=== PATIENT | female | born 1925 | race Caucasian/White ===

== ENCOUNTER 2016-05-13 12:20 | Outpatient (CLI) | payer OTHER ==
[~2016-05-13 12:20] MED LIST: FISH OIL PO; LISINOPRIL20 MG PO; LOVASTATIN10 MG PO; NORVASC10 MG PO; OMEPRAZOLE20 M1 PO; POLYETHYLENE3350 MG PO; SPIRONOLACTONE25 MG PO; TRAMADOL HCL50 MG PO; TUMS500 MG PO; TYLENOL/CODEINE #3 PO; VENTOLIN HFA IN; VITAMIN D-31000 UNIT PO
--- NOTE | 2016-05-13 12:51 | DIAGNOSTIC IMAGING REPORT ---
PROCEDURE: XR CHEST 2 VIEW INDICATION: DIZZINESS, FATIGUE TECHNIQUE: PA and lateral views. COMPARISON: Chest 04/07 and 12/03/2015 and 05/26/2011 and 09/09/2008 FINDINGS: There is a patchy left lower lobe infiltrate. This is unchanged from 04/07/16 No change in right middle lobe scarring. Heart size and pulmonary vasculature are normal. Tortuous aorta. IMPRESSION: 1. left lower lobe infiltrate. 2. Old right middle lobe scarring
== END 2016-05-13 23:00 ==
LOC: XR SRH 12:20
DX: R91.8 Other nonspecific abnormal finding of lung field (principal); R42 Dizziness and giddiness; R53.83 Other fatigue

== ENCOUNTER 2016-05-20 09:26 | Outpatient (CLI) | payer OTHER ==
--- NOTE | 2016-05-20 10:35 | DIAGNOSTIC IMAGING REPORT ---
PROCEDURE: CT THORAX WITH CONTRAST INDICATION: DIZZNESS; MILD COPD, follow-up pneumonia TECHNIQUE: 100 ml of Isovue 300 was injected intravenously and axial images were obtained of the chest with coronal and sagittal reformations. COMPARISON: Chest x-rays 05/13/2016, 04/07/2016 and 12/03/2015. FINDINGS: Lungs are clear without any evidence of pneumonia. No evidence of pulmonary nodules. Right pericardial fat pad extends into the right major fissure, accounting for what appears to represent scarring on the previous chest x-rays. No adenopathy or effusion. Mild atherosclerosis of the aorta. No dissection or aneurysm. Mild coronary atherosclerosis. Mild cardiomegaly. Cholecystectomy. Renal cysts. Mild degenerative changes of the spine. IMPRESSION: 1. No evidence of pneumonia 2. Prominent right pericardial fat pad 3. Mild cardiomegaly 4. Cholecystectomy
== END 2016-05-20 23:00 | disposition home or self-care (01) ==
LOC: CT SRH 09:26
DX: I51.7 Cardiomegaly (principal)